=== PATIENT | male | born 1965 | race Caucasian/White ===

== ENCOUNTER 2018-02-06 19:46 | Emergency (ER) | payer OTHER ==
[~2018-02-06] VITALS: Ht 175.3 cm; Wt 94.5 kg
[2018-02-06 19:53] VITALS: BP 149/97
[2018-02-06] MEDS ORDERED: ACETAMINOPHEN EXTRA STRENGTH 500 MG TAB PO ONE (21:40)
[2018-02-06 21:50] VITALS: BP 138/81
== END 2018-02-06 21:50 | disposition home or self-care (01) ==
LOC: MED 19:46
DX: R59.1 Generalized enlarged lymph nodes (principal); I10 Essential (primary) hypertension
CPT/HCPCS: 99282

== ENCOUNTER 2018-02-13 14:26 | Emergency (ER) | payer OTHER ==
[~2018-02-13] VITALS: Ht 175.3 cm; Wt 93.0 kg
[2018-02-13 14:36] VITALS: BP 147/86
--- NOTE | 2018-02-13 14:43 | NUR ---
PATIENT PRESENTS TO ED WITH C/O ELEVATED ABSCESS BEHIND RIGHT EAR WITH BLEEDING X3 DAYS, WAS SEEN 1 WEEK AGO, GETTING WORSE, DENIES PAIN. VSS; PATIENT POSITIONED FOR COMFORT; HOB ELEVATED; BEDRAILS UP X2; BED DOWN. ER MD MADE AWARE OF PT STATUS.
--- NOTE | 2018-02-13 14:56 | NUR ---
Patient being evaluated by physician at bedside.
[2018-02-13] MEDS ORDERED: LIDOCAINE 1% 500 MG/50 ML VIAL INJ SCH (15:00)
[2018-02-13 15:51] VITALS: BP 147/86
--- NOTE | 2018-02-13 15:51 | NUR ---
Patient discharged with v/s stable. Written and verbal after care instructions given and explained. Patient verbalized understanding. Ambulatory with steady gait. All questions addressed prior to discharge. Advised to follow up with PMD.
== END 2018-02-13 15:51 | disposition home or self-care (01) ==
LOC: MED 14:26
DX: H60.01 Abscess of right external ear (principal); J45.909 Unspecified asthma, uncomplicated; I10 Essential (primary) hypertension; Z88.6 Allergy status to analgesic agent
CPT/HCPCS: 69000; 99284; J2001